=== PATIENT | male | born 1940 | race Caucasian/White ===

== ENCOUNTER → 2017-02-28 18:23 | Emergency (ER) | payer MEDICARE, OTHER ==
[~2017-02-28 18:23] MED LIST: NS 0.9% 1000 ML* 1,000 ML IV ONE
[2017-02-28 19:28] LABS: Hematocrit 39 % (42-52); Hemoglobin 13.2 g/dl (14.0-18.0); Mean Corpuscular HGB Conc 34 g/dl (31-36); Mean Corpuscular Hemoglobin 31 pg (27-31); Mean Corpuscular Volume 92 fL (80-94); Mean Platelet Volume 9 um3 (7.4-10.4); Red Blood Count 4.18 10^6/ul (4.0-5.4); Red Cell Distribution Width 15 % (10.5-15); White Blood Count 5.6 10^3/ul (3.5-10.8)
[2017-02-28 19:43] LABS: Albumin 3.5 g/dL (3.2-5.2); BUN/Creatinine Ratio 30.4 (8-20); C Reactive Protein 87.09 mg/L (< 5.00); Calcium 10.1 mg/dL (8.6-10.3); EGFR Non-African American 94.9 (>60); Globulin 3.4 g/dL (2-4); Total Bilirubin 1.3 mg/dL (0.2-1.0); Total Protein 6.9 g/dL (6.4-8.9)
[2017-02-28 19:44] LABS: Troponin I 0.01 ng/mL (<0.04)
--- NOTE | 2017-02-28 21:04 | RAD ---
INDICATION: Weakness, elevated liver function tests. COMPARISON: There are no prior studies available for comparison. TECHNIQUE: Multiple real-time images of the right upper quadrant were obtained. FINDINGS: The gallbladder is contracted with a mildly thickened wall which is likely secondary to the contracted state. No gallstones or pericholecystic fluid is seen. No intra or extrahepatic ductal distention is present. The common bile duct measured 0.4 cm in diameter. The liver is normal in size without significant focal abnormality. The pancreas is partially obscured by overlying bowel gas. The right kidney is normal in size without evidence for hydronephrosis. IMPRESSION: PARTIALLY CONTRACTED GALLBLADDER, OTHERWISE UNREMARKABLE STUDY.
[2017-02-28 23:11] VITALS: BP 107/59
--- NOTE | 2017-03-01 12:12 | ED ---
Fiona Quinonez Edward, scribed for Vincenzo Del Real MD on 02/28/17 at 1858 . Complex/Multi-Sys Presentation - HPI Summary HPI Summary: 76 y/o male presents to ED c/o gradual onset fatigue and intermittent episodes of chills/hot flashes with shakes that resolve spontaneously. Pt had these symptoms first one week ago but the sx reappeared this morning. The pt was seen at Urgent Care last week and dx with a viral infection. No fever, cough and rash. Associated sx: low BP, constipation. SHx bypass surgery. PMHx angina. - History Of Current Complaint Chief Complaint: EDGeneral Time Seen by Provider: 02/28/17 18:41 Hx Obtained From: Patient Onset/Duration: Sudden Onset, Lasting Weeks - Starting last week, Resolved Timing: Intermittent, Lasting: Associated Signs And Symptoms: Positive: Other - Episodes of chills/hot flashes with shakes. Low BP. Constipation. Fatigue. 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 Negative: Fever Eyes: Negative ENT: Negative Cardiovascular: Negative Respiratory: Negative Negative: Cough Gastrointestinal: Other - Constipation Genitourinary: Negative Musculoskeletal: Negative Skin: Negative Negative: Rash Neurological: Other - Shakes Psychological: Normal All Other Systems Reviewed And Are Negative: Yes Physical Exam Triage Information Reviewed: Yes Vital Signs On Initial Exam: Initial Vitals Temp Pulse Resp BP Pulse Ox 97.7 F 98 16 96/70 96 02/28/17 18:30 02/28/17 18:30 02/28/17 18:30 02/28/17 18:30 02/28/17 18:30 Vital Signs Reviewed: Yes Appearance: Positive: Well-Appearing, No Pain Distress Skin: Positive: Warm, Skin Color Reflects Adequate Perfusion, Dry Head/Face: Positive: Normal Head/Face Inspection Eyes: Positive: Normal ENT: Positive: Other - Dry mucous membranes Neck: Positive: Supple, Nontender Respiratory/Lung Sounds: Positive: Clear to Auscultation, Breath Sounds Present Cardiovascular: Positive: RRR Abdomen Description: Positive: Nontender, Soft Bowel Sounds: Positive: Present Musculoskeletal: Positive: Normal Neurological: Positive: Normal Psychiatric: Positive: Normal, Affect/Mood Appropriate Diagnostics - Vital Signs Vital Signs Temp Pulse Resp BP Pulse Ox 02/28/17 18:30 97.7 F 98 16 96/70 96 - Laboratory Lab Results: Lab Results 02/28/17 02/28/17 02/28/17 Range/Units 19:17 19:17 19:17 WBC 5.6 (3.5-10.8) 10^3/ul RBC 4.18 (4.0-5.4) 10^6/ul Hgb 13.2 L (14.0-18.0) g/dl Hct 39 L (42-52) % MCV 92 (80-94) fL MCH 31 (27-31) pg MCHC 34 (31-36) g/dl RDW 15 (10.5-15) % Plt Count 146 L (150-450) 10^3/ul MPV 9 (7.4-10.4) um3 Neut % (Auto) 71.5 (38-83) % Lymph % (Auto) 15.3 L (25-47) % Dawson % (Auto) 10.7 H (1-9) % Eos % (Auto) 1.7 (0-6) % Baso % (Auto) 0.8 (0-2) % Absolute Neuts (auto) 4.0 (1.5-7.7) 10^3/ul Absolute Lymphs (auto) 0.9 L (1.0-4.8) 10^3/ul Absolute Monos (auto) 0.6 (0-0.8) 10^3/ul Absolute Eos (auto) 0.1 (0-0.6) 10^3/ul Absolute Basos (auto) 0 (0-0.2) 10^3/ul Absolute Nucleated RBC 0 10^3/ul Nucleated RBC % 0 INR (Anticoag Therapy) 1.55 H (0.89-1.11) Sodium 132 L (133-145) mmol/L Potassium 4.0 (3.5-5.0) mmol/L Chloride 101 (101-111) mmol/L Carbon Dioxide 25 (22-32) mmol/L Anion Gap 6 (2-11) mmol/L BUN 24 (6-24) mg/dL Creatinine 0.79 (0.67-1.17) mg/dL Est GFR ( Amer) 122.0 (>60) Est GFR (Non-Af Amer) 94.9 (>60) BUN/Creatinine Ratio 30.4 H (8-20) Glucose 149 H (70-100) mg/dL Calcium 10.1 (8.6-10.3) mg/dL Total Bilirubin 1.30 H (0.2-1.0) mg/dL AST 89 H (13-39) U/L ALT 92 H (7-52) U/L Alkaline Phosphatase 115 H (34-104) U/L Troponin I 0.01 (<0.04) ng/mL C-Reactive Protein 87.09 H (< 5.00) mg/L Total Protein 6.9 (6.4-8.9) g/dL Albumin 3.5 (3.2-5.2) g/dL Globulin 3.4 (2-4) g/dL Albumin/Globulin Ratio 1.0 (1-3) Result Diagrams: 02/28/17 19:17 02/28/17 19:17 Lab Statement: Any lab studies that have been ordered have been reviewed, and results considered in the medical decision making process. - Ultrasound No standard instances Ultrasound Interpretation: No Acute Changes - GALLBLADDER US - PARTIALLY CONTRACTED GALLBLADDER, OTHERWISE UNREMARKABLE STUDY. Ultrasound Interpretation Completed By: Radiologist - EKG 1 EKG Rhythm: Atrial Fibrillation - @ 101 BPM Ectopy: PVCs EKG Interpretation: 19:34 - LBBB EKG Comparison: Other - NO CHANGE FROM 11/21/15 OTHER THAN PVC Complex Multi-Symp Course/Dx Course Of Treatment: Mr. Conley presented feeling presyncopal with his BP running low for him. He has been feeling unwell for about a weak with intermittent chils and sweats. He saw his PMD who felt he had a likely viral syndrome. His W/U here showed him to be significantly dehydrated and his pressure improved well with IV NS. His transaminases were also slightly elevated and I think he likely has been suffering a viral illness and got significantly dehydrated. I do recommend close F/U to make sure his labs normalize. He has not had any rashes and says he is rarely outdoors. - Diagnoses Provider Diagnoses: Viral syndrome, Dehydration Discharge - Discharge Plan Condition: Stable Disposition: HOME Patient Education Materials: Dehydration (ED), Viral Syndrome (ED) Referrals: [facility] [place] [facility]FERRAL [Outside] - 1 Week (PLEASE F/U WITHIN THE WEEK) The documentation as recorded by the Fiona huang Edward accurately reflects the service I personally performed and the decisions made by me, Vincenzo Del Real MD.
== END | disposition home or self-care (01) ==
LOC: ED 18:23
DX: B34.9 Viral infection, unspecified (principal); E86.0 Dehydration; K59.00 Constipation, unspecified; R23.2 Flushing; R03.1 Nonspecific low blood-pressure reading; E11.9 Type 2 diabetes mellitus without complications; I48.91 Unspecified atrial fibrillation; I25.10 Atherosclerotic heart disease of native coronary artery without angina pectoris; I25.2 Old myocardial infarction; Z95.1 Presence of aortocoronary bypass graft; I44.7 Left bundle-branch block, unspecified; Z87.891 Personal history of nicotine dependence
CPT/HCPCS: 36415; 76705; 80053; 84484; 85025; 85610; 86140; 93005; 96360; 96361; 99282